=== PATIENT | female | born 1985 | race African-American/Black ===

== ENCOUNTER 2017-08-06 12:49 | Emergency (ER) | payer MEDICAID ==
[~2017-08-06] VITALS: Ht 175.3 cm; Wt 60.0 kg
[2017-08-06 13:02] VITALS: BP 103/68
== END 2017-08-06 16:00 | disposition left against medical advice (07) ==
LOC: ER 13:06
DX: R55 Syncope and collapse (principal); Z53.21 Procedure and treatment not carried out due to patient leaving prior to being seen by health care provider
CPT/HCPCS: 93005